=== PATIENT | male | born 1995 | race Caucasian/White ===

== ENCOUNTER → 2016-10-27 | Outpatient (CLI) | payer OTHER ==
[~2016-10-27] MED LIST: DOSS PO; NAPROXEN500 MG PO; NORCO 7.5-3251 EACH PO; PHENERGAN 12.12.5 M1 PO; ZOLOFT50 MG PO
== END ==
LOC: KOH-I 16:14
DX: S83.242A Other tear of medial meniscus, current injury, left knee, initial encounter (principal)
CPT/HCPCS: 73721

== ENCOUNTER → 2016-11-02 | Day surgery (SDC) | payer OTHER ==
[~2016-11-02] VITALS: Ht 182.9 cm; Wt 107.0 kg
== END | disposition home or self-care (01) ==
LOC: OR 06:43
PROVIDERS: Orthopaedic Surgery
PROC: 0SBD4ZZ Excision of Left Knee Joint, Percutaneous Endoscopic Approach (ICD-10-PCS; principal; 2016-11-02 07:45)
DX: M65.862 Other synovitis and tenosynovitis, left lower leg (principal); F32.9 Major depressive disorder, single episode, unspecified; Z82.49 Family history of ischemic heart disease and other diseases of the circulatory system; Z98.890 Other specified postprocedural states
CPT/HCPCS: C1713; J0171; J0690; J1100; J2250; J2405; J3010; J7120